=== PATIENT | male | born 1955 | race Caucasian/White ===

== ENCOUNTER 2016-08-27 07:41 | Outpatient (CLI) ==
[2015-10-29 19:11] VITALS: BMI 31.0
--- NOTE | 2016-08-27 16:05 | MRI ---
EXAM: MRI lumbar spine without IV contrast. DATE: 27 August 2016. HISTORY: Lumbar radiculopathy. Low back pain with right-sided sciatica. TECHNIQUE: Sagittal and axial T1W and T2W sequences of the lumbar spine along with sagittal IR and coronal T2W sequences were obtained using 1.2 Bharti magnet. No IV contrast. COMPARISON: LS spine series 25 June 2015. FINDINGS: There are five [id number] lumbar vertebra. There is no lumbar scoliosis. A 1.5 mm anterior subluxation of S1 relative to L5 is noted. No other subluxation, acute fracture, osseous m alignancy, or pars interarticularis defect is identified. Lumbar vertebra are normal in height. Ramon ne marrow signal is normal. Prominent osteophytes are seen at L2-3, L3-4, and L5-S1. Minor L3-4 an d mild L5-S1 disc space narrowing is detected. No sacral fracture or stress reaction is identified. SI joints are unremarkable. Conus medullaris terminates at L1. Visible spinal cord is normal. No retroperitoneal lymphadenopathy, paraspinal mass, or aortic aneurysm is detected. Paraspinal mus culature is symmetric bilaterally. Visible portions of the liver, spleen, adrenal glands, and kidne ys are unremarkable. Segmental analysis: T12-L1: Normal. L1-2: Normal. L2-3: Minimal concentric disc bulge causes minimal bilateral foraminal encroachment. No central ca nal stenosis. L3-4: Small concentric disc bulge and minor facet arthropathy cause mild bilateral foraminal narrow ing. No central canal stenosis. L4-5: Small concentric disc bulge and mild facet arthropathy cause mild central canal stenosis and moderate bilateral foraminal stenoses. Each L4 nerve root contacts the disc bulge near the lateral margin of the foramen. L5-S1: Minimal anterior subluxation of S1, small bilateral posterolateral spondylotic ridges at L5 inferior endplate, mild right facet arthropathy, and minor left facet disease cause marked bilateral foraminal stenoses. Each L5 nerve root contacts the disc bulge near the foramen. No central canal stenosis. IMPRESSIONS: 1. Lumbar spine moderate spondylosis, mild facet arthropathy, and multilevel DDD. 2. Multilevel foraminal stenosis. Bilateral L4 and L5 nerve roots compromised near the foramen, an d may be sources for pain/radiculopathy 3. Mild central canal stenosis at L4-5.
== END 2016-08-27 07:42 | disposition home or self-care (01) ==
LOC: RAD 07:41
PROVIDERS: ATTEND Anesthesiology Pain Medicine
DX: M54.16 Radiculopathy, lumbar region (principal)